=== PATIENT | female | born 1940 | race Caucasian/White ===

== ENCOUNTER 2017-02-26 12:25 | Emergency (ER) | payer OTHER ==
[2017-02-26 13:34] VITALS: RESP 18
--- NOTE | 2017-02-26 13:46 | DI ---
RIGHT SHOULDER, 02/26/2017 12:55 PM: Clinical History: Trauma. Previous Exam: None at this facility. 2 views are submitted. On the AP projection, there is a bony density along the inferior margin of the humeral neck and at the level of the surgical neck. This either represents a fracture fragment or it may represent some bony spurring from the inferior margin of the glenoid fossa. A glenoid fossa view and an axillary view are recommended for further evaluation. The remainder of the exam is normal. Th e visualized portions of the right lung and right apex are normal. Readin. There is a bony density along the inferior aspect of the humeral head and surgical neck along the medial margin. This can either represent an acute fracture or possibly bony spurring. 2. A glenoid fossa projection and an axillary view are recommended for further evaluation.
--- NOTE | 2017-02-27 03:55 | PDOC ---
Shoulder Injury/Pain HPI - General Chief Complaint: Upper Extremity Problem/Injury Stated Complaint: fell injured right shoulder Date Seen by Provider: 02/26/17 Time Seen by Provider: 12:40 Source: POSITIVE: Patient Exam Limitations: POSITIVE: No limitations Nurse's Notes Reviewed & Considered: Yes - History of Present Illness Initial Comments: The patient is a 76-year-old female. She is a resident of the long term. 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 She was being transferred from her bed to her wheelchair with the help of a nurse. In the course of the transferred she fell onto the floor and then the nurse fell on top of her. Patient injured her right shoulder. Patient denies any associated head neck back chest abdominal hip or lower extremity trauma or discomfort. Have you received a tetanus shot in the past 10 years?: Unknown Location: Right Shoulder Timing: REPORTS: Abrupt Duration: 1 hour Severity: Moderate Quality: REPORTS: "Pain" Location at Time of Onset: REPORTS: Other (group home) Context: REPORTS: Fall, Direct Blow Associated Symptoms: REPORTS: Unable to Move Shoulder (Range of motion right shoulder limited by pain). DENIES: Weakness, Bruising, Not Using Arm, Tingling , Numbness, Other Any Prior Injuries Related to Current Complaint?: No - Patient Home Medications Home Medications: Home Medications Aspirin 1 tab PO BID tab 10/13/15 Hydrocodone/Acetaminophen [Hydrocodon-Acetaminophen 5-325] 1 tab PO Q12H tab Simvastatin 1 tab PO QHS tab 10/14/15 Levothyroxine Sodium 1 tab PO QAM tab 10/25/15 Polyethylene Glycol 3350 [Miralax] 17 gm PO QHS 11/01/15 Iron Polysaccharide Complex [Polysaccharide Iron 150] 1 cap PO BID cap Acetaminophen [Tylenol Extra Strength] 2 tab PO QD tab 05/02/16 Vitamin B Complex [B Complex # 1] 1 each PO QAM tab 08/15/16 - Patient Allergies Allergies/Adverse Reactions: Allergies Allergy/AdvReac Type Severity Reaction Status Date / Time Penicillins Allergy HIVES Verified 02/26/17 12:48 Sulfa (Sulfonamide Allergy HIVES Verified 02/26/17 12:48 Antibiotics) Past Medical History - heen HEENT History: Cataracts Cardiovascular History: Hypertension Respiratory History: Denies History Gastrointestinal History: Denies History Genitourinary History: Denies History Endocrine History: Hypothyroidism Musculoskeletal History: Joint Pain 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 Neurological History: CVA Additional Neurological History: LEFT SIDED HEMIPARESIS Blood Disorders: Denies History Psychiatric History: Denies History History of Sexually Transmitted Diseases: No Cancer History: Denies History In Past Year Been Physically Harmed or Verbally Threatened: No History of MDRO: No History of Other Communicable Diseases: No Tobacco Use: Former Smoker Alcohol Use: None Substance Use Type: None Previous Surgical History: Yes Type / Date of Surgery: HYSTERECTOMY, RIGHT HIP SURGERY X2, RIGHT CATARACT, RIGHT WRIST ORIF, Anesthesia Reactions: No Malignant Hyperthermia: No Significant Family History: No pertinent family hx Past Medical History Reviewed: Reviewed - No Changes ROS - Limitations ROS Limitations: No Limitations Constitution: REPORTS: Denies Symptoms Cardiovascular: REPORTS: Denies Cardiac Symptoms Respiratory: REPORTS: Denies Resp Symptoms Neurological: REPORTS: Denies Neuro Symptoms Gastrointestinal: REPORTS: Denies GI Symptoms Endocrine: REPORTS: Denies Symptoms Musculoskeletal: REPORTS: Joint Pain (Right shoulder) Genitourinary: REPORTS: Denies Symptoms Eyes: REPORTS: Denies Symptoms ENT: REPORTS: Denies Symptoms Skin: REPORTS: Denies Skin Symptoms Lympathic: REPORTS: Denies Lympathic Symptoms Immunologic: POSITIVE: Denies Symptoms Psychiatric: POSITIVE: Denies Psych Symptoms Shoulder Injury/Pain Exam - General Appearance General Appearance: POSITIVE: Alert, Cooperative, No Acute Distress - Upper Extremity Shoulder: POSITIVE: Normal Inspection, No Dislocation, Soft-Tissue Tenderness, Bony Tenderness, Limited ROM, Held in Abduction, Limited Abduction, Limited Internal Rotation, Limited External Rotation, Limited Flexion, Limited Extension , See Diagram. NEGATIVE: Full ROM (Range of motion limited by pain), Swelling, Ecchymosis, Clavicular Deformity, AC Drop-Off, Anterior Fullness, Held in Adduction, Held in Internal Rotation, Held in External Rotation, Limited Adduction Upper Extremity: POSITIVE: Uninjured Below Shoulder Neuro/Vascular: POSITIVE: Sensation Normal, Motor Normal, No Vascular Compromise Skin: POSITIVE: Warm, Dry - HEENT HEENT: POSITIVE: Head Inspection Nml, Eyes Inspection Nml, Ears Inspection Nml, Nose Inspection Nml, Oral/Dental Inspect. Nml, Pharynx Inspect. Nml, PERRL, EOMI - Neck / Back Neck/Back: POSITIVE: Normal Inspection, Non-Tender, Painless ROM - Respiratory / CVS Respiratory / CVS: POSITIVE: Chest Non Tender, No Ecchymosis, Breath Sounds Normal, No Respiratory Distress, Heart Sounds Normal, Regular Rate/Rhythm Peripheral Pulses: Radial (R): 2+, Radial (L): 2+ - Abdomen Abdomen: Soft: (All Quadrants), Normal Bowel Sounds: (All Quadrants), Denies Tenderness: (All Quadrants), No Splenomegaly: (All Quadrants), No Hepatomegaly: (All Quadrants), No Guarding: (All Quadrants), No Rebound: (All Quadrants), No Palpable Pulse: (All Quadrants), No Palpabale Mass: (All Quadrants), No Distention: (All Quadrants), No Rigidity: (All Quadrants) Procedure - Splinting Time Splint Applied: 13:35 Location: right shoulder Pre-Proc Neuro Vasc Exam: Normal Splint Type: Shoulder Immobilizer Applied By:: Nurse Post-Proc Neuro Vasc Exam: Normal Images - Complete Complete: 1 - Area of described pain Shoulder Pain/Injury Progress - Results Reviewed by me Xrays/CTs/US Reviewed by me: Yes Discussed with Radiologist: No Radiology Findings: No fractures or dislocations seen by me; radiologist interpretation pending - Patient's Progress Pain Medication Addressed: POSITIVE: Yes (Recommended Advil or Tylenol) School/Work Release Addressed: POSITIVE: Not Applicable Re-Examine Time:: 13:45 Re-Examine Comment: Pain relief with shoulder immobilizer. Patient advised she needs to follow-up in orthopedics in 5-7 days, as an occult fracture cannot be completely excluded. This was also discussed with long term personnel. Status: POSITIVE: Improved, Re-Examined - Consult Counseled: POSITIVE: Patient, RE: Radiology Results, RE: DX, RE: Need for F/U, Other (group home staff) Patient Care Time - Estimated PCT Patient Care Time (In Minutes): 34 Vital Signs - VS Reviewed Vital Signs Reviewed: Yes Discharge Clinical Impression: Shoulder strain Discharge Disposition: Discharged to Home Condition: Stable Patient Instructions Given at Discharge: Shoulder Sprain (ED) Additional Instructions: I see no fractures or dislocations of your right shoulder. However, especially in the elderly with thin bones, you can sometimes actually sustain a nondisplaced fracture and a fracture will not show up on the initial x-ray. Therefore, I'm going to place her right shoulder in a shoulder immobilizer. Wear the immobilizer and do not remove. I would like you to follow-up in the orthopedic clinic for reevaluation in approximately 5 days. Return here anytime if condition worsens in any way. Tylenol for discomfort. Follow Up With: MARII PAYNE [Primary Care Provider] - (Instructions as above. Follow-up in the orthopedic clinic in approximately 5 days. Return here anytime if condition worsens in any way.)
== END 2017-02-26 14:14 ==
LOC: ER 12:25
DX: S46.911A Strain of unspecified muscle, fascia and tendon at shoulder and upper arm level, right arm, initial encounter (principal); I69.854 Hemiplegia and hemiparesis following other cerebrovascular disease affecting left non-dominant side; I10 Essential (primary) hypertension; W18.39XA Other fall on same level, initial encounter; Y92.129 Unspecified place in nursing home as the place of occurrence of the external cause
CPT/HCPCS: 73030; 99283

== ENCOUNTER → 2017-03-06 | Outpatient (CLI) | payer OTHER ==
--- NOTE | 2017-03-06 11:59 | DI ---
RIGHT ELBOW, 03/06/2017 11:23 AM: Clinical History: Right shoulder pain secondary to recent trauma. Previous Exam: None at this facility. 3 views are submitted. There is no acute soft tissue, osseous, or joint abnormality. There is osteopo rosis. Reading: Normal right elbow exam.
== END ==
LOC: ORTHO 13:04
PROVIDERS: ATTEND Physician Assistant
DX: M25.511 Pain in right shoulder (principal); S42.291A Other displaced fracture of upper end of right humerus, initial encounter for closed fracture; W06.XXXA Fall from bed, initial encounter; Y93.89 Activity, other specified; Y92.129 Unspecified place in nursing home as the place of occurrence of the external cause
CPT/HCPCS: 73080; 99203

== ENCOUNTER → 2017-03-06 | Outpatient (CLI) | payer OTHER ==
--- NOTE | 2017-03-06 13:17 | DI ---
RIGHT SHOULDER, 03/06/2017 11:19 AM: Clinical History: Right shoulder pain. The patient sustained trauma to the right shoulder on 7. Previous Exam: 02/26/2017. 2 views are submitted. There is a slightly impacted fracture of the surgical neck of the humerus with medial angulation of the distal fracture fragment in the range of 10-15 degrees. Attempted obtaining an optimal scapular Y view or a transthoracic view were not successful because of the patient's phys ical condition and sitting in a wheelchair. Assessment for anterior or posterior angulation is theref ore inaccurate. The visualized portions of the right apex and lung are normal. There is osteoporosis in the humeral fracture indicates this patient has severe osteoporosis. Readin. Impacted fracture of the surgical neck of the humerus with mild medial angulation of the distal f racture fragment. 2. Severe osteoporosis.
--- NOTE | 2017-03-06 14:33 | DI ---
CT SCAN OF THE RIGHT SHOULDER, 03/06/2017 12:20 PM : Clinical History: Closed fracture of the proximal right humerus. Scans are obtained from above the right shoulder to the midshaft of the right humerus without IV cont rast. Sagittal and coronal reformatted images are also generated. There is diffuse osteoporosis. There is an impacted fracture through the surgical neck of the humerus with approximately 10 degrees of medial and anterior angulation of the distal fracture fragment. A l arge joint effusion is present. There is a calcific density in the region of the supraspinatus myoten dinous junction and this may represent calcific tendinitis. READIN. There is an impacted fracture through the surgical neck of the right humerus with approximately 1 0 degrees of medial and 10 degrees of anterior angulation of the distal fracture fragment. There is a large joint effusion. There may be calcific tendinitis. 2. Severe osteoporosis.
== END ==
LOC: CT 12:17
PROVIDERS: ATTEND Physician Assistant
DX: M25.512 Pain in left shoulder (principal); S42.291A Other displaced fracture of upper end of right humerus, initial encounter for closed fracture; W17.89XA Other fall from one level to another, initial encounter
CPT/HCPCS: 73030; 73200

== ENCOUNTER → 2017-03-14 | Outpatient (CLI) | payer OTHER ==
--- NOTE | 2017-03-14 11:58 | DI ---
XR SHOULDER MIN 2VW,03/14/2017 10:01 AM: Clinical History: Right proximal humeral fracture. Previous Exam: March 06, 2017 Findings: 2 views of the right proximal humerus are obtained, and demonstrate a fracture through the proximal r ight humeral metaphysis. The right acromioclavicular joint is mildly degenerative. The adjacent right lung and chest wall are unremarkable. Impression: No significant change in the right proximal humeral metaphyseal fracture.
== END ==
LOC: ORTHO 10:44
PROVIDERS: ATTEND Physician Assistant
DX: S42.294D Other nondisplaced fracture of upper end of right humerus, subsequent encounter for fracture with routine healing (principal)
CPT/HCPCS: 73030; 99212; G0463

== ENCOUNTER → 2017-03-27 | Outpatient (CLI) | payer OTHER ==
--- NOTE | 2017-03-27 13:18 | DI ---
XR SHOULDER MIN 2VW,03/27/2017 11:25 AM: Clinical History: Fracture of the distal right humerus. Previous Exam: March 14, 2017 Findings: 2 views of the right shoulder are obtained, and demonstrate a fracture of the right proximal humerus through the humeral neck with slight displacement. There is some new bony sclerosis. Mild degenerative changes are noted of the right acromioclavicular joint. The adjacent right lung and chest wall are unremarkable. Impression: Healing right proximal humeral fracture.
== END ==
LOC: ORTHO 13:13
PROVIDERS: ATTEND Physician Assistant
DX: S42.294D Other nondisplaced fracture of upper end of right humerus, subsequent encounter for fracture with routine healing (principal)
CPT/HCPCS: 73030

== ENCOUNTER → 2017-04-11 | Outpatient (CLI) | payer OTHER ==
--- NOTE | 2017-04-11 10:48 | DI ---
RIGHT SHOULDER, 04/11/2017 9:42 AM: Clinical History: Closed nondisplaced fracture of the proximal right humerus with routine healing. Previous Exam: 03/27/2017. 2 views are submitted. There is sclerosis at the fracture site indicating healing of the fracture thr ough the surgical neck of the humerus. Alignment and position are unchanged from the previous study. Reading: Healing fracture of the proximal right humerus. There has been no change in alignment and position.
== END ==
LOC: ORTHO 09:58
PROVIDERS: ATTEND Physician Assistant
DX: S42.294D Other nondisplaced fracture of upper end of right humerus, subsequent encounter for fracture with routine healing (principal)
CPT/HCPCS: 73030